=== PATIENT | female | born 1950 | race Caucasian/White ===

== ENCOUNTER 2019-03-26 18:36 | Emergency (ER) | payer BC ==
--- NOTE | 2019-03-26 20:00 | ED Physician Documentation ---
PD HPI LOWER EXT INJURY - Stated complaint Stated Complaint: LT LEG PX - Chief complaint Chief Complaint: Trauma Ext - History obtained from History obtained from: Patient - History of Present Illness PD HPI LOW EXT INJURY LOCATION: Left, Hip, Upper leg (anterolateral thigh) Type of injury: Other (no noted abrupt injury). No: Fall, Twist Timing - onset: How many days ago (few) Timing - duration: Days (few) Timing - details: Gradual onset, Still present Worsened by: Moving (ROM of the hip. Does not hurt for knee movement.), Palpating (lateral hip) Associated symptoms: No: Weakness, Numbness, Swelling Similar symptoms before: Has not had sx before Recently seen: Not recently seen Review of Systems Constitutional: denies: Fever, Chills Nose: denies: Rhinorrhea / runny nose, Congestion Throat: denies: Sore throat Respiratory: denies: Cough GI: denies: Abdominal Pain : denies: Dysuria, Frequency Skin: denies: Rash, Lesions Neurologic: denies: Generalized weakness, Focal weakness, Numbness PD PAST MEDICAL HISTORY - Past Medical History Past Medical History: Yes Cardiovascular: Hypertension, High cholesterol Respiratory: Asthma Other Past Medical History: thyroid - Past Surgical History Past Surgical History: Yes - Present Medications Home Medications: Ambulatory Orders Medication Instructions Recorded Confirmed Indomethacin [Indocin] 25 mg PO BIDWM PRN #30 capsule 01/24/15 Levothyroxine [Synthroid] 25 mcg PO DAILY 01/24/15 01/24/15 Lisinopril/Hydrochlorothiazide 1 mg PO DAILY 01/24/15 01/24/15 [Lisinopril-Hctz 10-12.5 mg Tab] predniSONE [Deltasone] 20 mg PO [id number] #21 tab 01/24/15 Naproxen 500 mg PO BID #20 tablet 03/26/19 Tramadol HCl 50 mg PO Q6H PRN #20 tablet 03/26/19 dexAMETHasone [Decadron] 4 mg PO DAILY #5 tablet 03/26/19 - Allergies Allergies/Adverse Reactions: Allergies Allergy/AdvReac Type Severity Reaction Status Date / Time amoxicillin AdvReac Nausea Verified 03/26/19 18:47 - Social History Does the pt smoke?: No Smoking Status: Never smoker Does the pt drink ETOH?: No Does the pt have substance abuse?: No - Immunizations Immunizations are current?: No Immunizations: TDAP >10years/unknown PD ED PE NORMAL - Vitals Vital signs reviewed: Yes - General General: Alert and oriented X 3, Well developed/nourished, Other (seems in pain with left leg movement. ) - Abdomen Abdomen: Soft, Non tender - Back Back: No CVA TTP, No spinal TTP - Derm Derm: Normal color, Warm and dry, No rash - Extremities Extremities: Other (left lateral hip with some soft tissue tenderness. Also point tender over trochanteric bursa area. No redness nor warmth. No skin lesions. ) - Neuro Neuro: Alert and oriented X 3, No motor deficit, No sensory deficit, Normal speech Results - Vitals Vitals: Oxygen O2 Source Room air PD MEDICAL DECISION MAKING - ED course Complexity details: considered differential (tender at lateral bursa. Local injection with Kenalog and Marcaine done. DOes not seem like hip joint per se. Could be some element of sciatic pain as well. ), d/w patient Departure - Departure Disposition: 01 Home, Self Care Clinical Impression: Left leg pain Bursitis Qualifiers: Bursitis location: hip Hip bursitis location: trochanteric bursitis Laterality: left Qualified Code(s): M70.62 - Trochanteric bursitis, left hip Condition: Stable Record reviewed to determine appropriate education?: Yes Instructions: ED Bursitis Follow-Up: Mina Godinez MD [Primary Care Provider] - Prescriptions: dexAMETHasone [Decadron] 4 mg PO DAILY #5 tablet Naproxen 500 mg PO BID #20 tablet Tramadol HCl 50 mg PO Q6H PRN #20 tablet PRN Reason: Pain Comments: I think your symptoms sound mostly like trochanteric bursitis of the leg. There may be some element of nerve irritation to from the lower back. Treated with anti-inflammatories of both naproxen and Decadron. Add Tylenol or tramadol if needed for pains. Apply some heat periodically to the sore area on the outer part of the hip. Activity as tolerated. Recheck if not improved over the next several days to week. Discharge Date/Time: 03/26/19 21:21
[2019-03-26] MEDS ORDERED: traMADol 50 MG TABLET PO STA (20:24)
[2019-03-26] MEDS ORDERED: TRIAMCINOLONE 40 MG/ML VIAL IM STA (20:24)
[2019-03-26] MEDS ORDERED: DEXAMETHASONE 10 MG/ML VIAL PO STA (20:24)
[2019-03-26] MEDS ORDERED: ACETAMINOPHEN 325 MG TABLET PO STA (20:24)
[2019-03-26] MEDS ORDERED: CHERRY SYRUP 10 ML UDC PO ONE (20:24)
[2019-03-26 21:23] VITALS: BP 150/62
== END 2019-03-26 21:21 | disposition home or self-care (01) ==
LOC: ED 18:36
DX: M70.62 Trochanteric bursitis, left hip (principal); I10 Essential (primary) hypertension; E03.9 Hypothyroidism, unspecified
CPT/HCPCS: 20610; 99283; A9270